=== PATIENT | female | born 1995 | race Caucasian/White ===

== ENCOUNTER 2018-12-17 16:49 | Emergency (ER) | payer SELFPAY ==
[~2018-12-17] VITALS: Ht 160 cm; Wt 59.0 kg
--- NOTE | 2018-12-17 17:59 | NUR ---
Patient discharged to home in stable conditon. Written and verbal after care instructions given. Patient verbalizes understanding of instructions.
[2018-12-17 18:00] VITALS: BP 101/77
== END 2018-12-17 18:04 | disposition home or self-care (01) ==
LOC: ER 16:51
DX: A54.9 Gonococcal infection, unspecified (principal); A74.9 Chlamydial infection, unspecified; A59.01 Trichomonal vulvovaginitis; B19.20 Unspecified viral hepatitis C without hepatic coma; Z88.8 Allergy status to other drugs, medicaments and biological substances
CPT/HCPCS: A4663